=== PATIENT | male | born 1945 | race Caucasian/White ===

== ENCOUNTER → 2016-10-20 | Outpatient (CLI) | payer BC ==
[~2016-10-20] MED LIST: ASPI81TA28 PO; CEPH500C PO; METO50TA7 PO; SILD100T PO
== END | disposition home or self-care (01) ==
LOC: C.RDSM 13:03
PROVIDERS: ATTEND Family Medicine
DX: M20.42 Other hammer toe(s) (acquired), left foot (principal)

== ENCOUNTER 2017-01-13 14:36 | Emergency (ER) | payer BC ==
[~2017-01-13] VITALS: Ht 180.3 cm; Wt 69.4 kg
[2017-01-13 14:45] VITALS: TEMP 36.4; Ht 180.3 cm; Wt 69.4 kg
[2017-01-13] MEDS ORDERED: BUPIVACAINE 0.5 % 5 MG/1 ML MPF 30ML VIAL INFIL ONE (15:15)
[2017-01-13] MEDS ORDERED: LIDOCAINE/EPINEPHRINE 1% 20 ML VIAL INFIL ONE (15:15)
[2017-01-13] MEDS ORDERED: METO50TA7 PO (15:31)
[2017-01-13] MEDS ORDERED: ASPI81TA28 PO (15:33)
[2017-01-13] MEDS ORDERED: SILD100T PO (15:33)
--- NOTE | 2017-01-13 15:51 | DIAGNOSTIC IMAGING REPORT ---
RIGHT FEMUR 2 VIEWS ROUTINE CLINICAL HISTORY: Right lateral leg pain COMPARISON: None. DISCUSSION: No fractures are visualized. There is air within the proximal lateral soft tissues, consistent with a soft tissue injury. IMPRESSION: Soft tissue injury. No radiopaque foreign bodies identified. No evidence of fracture. Electronically signed by: Saravanan Lan M.D. 01/13/2017 3:50 PM Dictated Date/Time: 01/13/2017 3:49 PM
[2017-01-13] MEDS ORDERED: CEPH500C PO (17:28)
[2017-01-13 17:43] VITALS: BP 143/90; PULSE 62; O2SAT 97
--- NOTE | 2017-01-13 18:26 | EMERGENCY ROOM VISIT NOTE ---
ED Visit Note First contact with patient: 14:56 This Patient was discussed with the physician engineer third assistant, Gali Xiao PA-C. The pertinent historical and physical exam findings were confirmed. I agree with the studies ordered and with the interpretations of these studies. I agree with the disposition and care plan.
--- NOTE | 2017-01-13 18:28 | EMERGENCY ROOM VISIT NOTE ---
ED Visit Note First contact with patient: 14:56 CHIEF COMPLAINT: Right lateral thigh laceration HISTORY OF PRESENT ILLNESS: This 72-year-old male patient presents to the emergency department approximately 1 hour after cutting the right lateral thigh. The patient states he was walking down the steps, when he tripped, and fell, landing on his right leg. The patient states he hit a corner of a piece of plywood, and experienced a large laceration of the right lateral thigh. The patient has been able to walk, and has not had any decreased range of motion. The patient did drive himself to the emergency department, and has not taken anything for pain. The bleeding has not stopped. Denies weakness or numbness of the right lower extremity. The patient rates the pain as minimal and 1/10. The patient denies any other injuries. The patient's Tetanus shot is up to date. REVIEW OF SYSTEMS: A 6 system review of systems was completed with positives and pertinent negatives listed in the HPI. ALLERGIES: None MEDICATIONS: Metoprolol PMH: Mild heart arrhythmia SOCIAL HISTORY: The patient lives locally with family. He denies drug, alcohol , tobacco use. PHYSICAL EXAM: Vital Signs: Reviewed Nurse's notes, vital signs stable. GENERAL : This is a 72-year-old male, in no acute distress, well-developed, well- nourished. SKIN: There is a 6 cm long laceration on the lateral aspect of the right thigh. The edges gape apart with and without traction. There is no foreign material in the wound and it looks clean. There is minimal bleeding. The laceration does extend to the muscle, however is not through the fascia. No other deep structures such as tendons, bones, or significant blood vessels are seen in the base of the wound. Normal strength and movement of the right lower extremity. The patient is able to bear weight on the leg. Capillary refill less than 2 seconds. Normal sensation to light and sharp touch. RADIOLOGY: X-Ray Right Femur: DISCUSSION: No fractures are visualized. There is air within the proximal lateral soft tissues, consistent with a soft tissue injury. IMPRESSION: Soft tissue injury. No radiopaque foreign bodies identified. No evidence of fracture. EMERGENCY DEPARTMENT COURSE: I examined the patient. Verbal consent was obtained to perform the procedure. Using sterile technique the wound was cleansed with Betadine. The area was sterilely draped. 26 ml of 1% buffered lidocaine with epinephrine and 0.5% bupivacaine was used to anesthetize the laceration on the right lateral thigh. Once the patient was anesthetized, the wound was copiously irrigated under pressure with 1 L sterile saline. The wound was explored and was as described above. The laceration was repaired using 5 subcuticular 4-0 Vicryl sutures and 13 simple interrupted 4-0 nylon sutures with the wound edges being well approximated. The patient tolerated the procedure well. Hemostasis was achieved. The area was cleaned with sterile saline and dressed with bacitracin ointment and bandage. The patient was seen and evaluated by Dr. Akhtar, who is in agreement with the assessment and plan. The patient was discharged home in good condition. DIFFERENTIAL DIAGNOSIS: Femur fracture, laceration through muscle, open fracture , and others. DIAGNOSIS: Right lateral thigh laceration DISCHARGE INSTRUCTIONS & TREATMENT: You have received 13 sutures on your right thigh. These sutures are NOT dissolvable and WILL need to be removed by a health care provider in 12-14 days. You can return to the Emergency Department or contact your Primary Care Provider to have the sutures removed. You also received 5 dissolvable sutures below the skin. You were prescribed Keflex to be taken 4 times daily. This is an antibiotic. All antibiotics have the potential to cause diarrhea. Stop this medication and contact a medical provider if you were to develop any significant adverse side effects including: wheezing, shortness of breath, passing out, vomiting, or a diffuse rash. Always take antibiotics as directed and COMPLETE the ENTIRE course regardless of the improvement of your symptoms. Proper wound care is essential for adequate wound healing and infection prevention. You can shower and clean the wound with soap and water. Do not scour over the wound, pat dry with a towel. Do not submerse the wound (i.e. bathe or dish wash) until the sutures have been removed. You can use an antibiotic ointment with a dressing over the wound for the next 3-4 days. After this time you may leave the wound dry and open to the air. If crust develops over the wound you can use a Q-tip to apply a 1:1 peroxide:water solution to clean the wound. Look for signs of infection of the wound including: increased pain, swelling, foul discharge, streaking, or increased temperature. If any of these are noticed you should return to the Emergency Department for further assessment and treatment. As with any laceration you may have received nerve damage to the surrounding tissues. This damage may or may not be permanent. You should keep the area covered with sunscreen for the first 6 months to 1 year when at risk for exposure to help minimize scarring. You can also use scar reducing creams or Vitamin E oil to help minimize scarring. For pain control, you can use the following kdro-ztd-uagtqjs medicines (if >12 yo): - Regular strength (325mg/tab) Tylenol (acetaminophen) 2 tabs every 4-6 hours as needed. Do not exceed 12 tablets in a 24 hour period. Avoid taking more than 4 grams (4000 mg) of Tylenol per day. This includes any other sources of acetaminophen you may take on a regular basis. - Regular strength (200 mg/tab) Advil (ibuprofen) 1-2 tabs every 4-6 hours as needed. Do not exceed a dose of 3200 mg per day. Please avoid excessive physical activity until the sutures have been removed. Contact orthopedic surgery for further evaluation if you experience any significant loss of mobility or difficulty with ambulation. Return to the emergency department if your symptoms worsen despite treatment course outlined above. Current/Historical Medications Scheduled Aspirin (Aspirin Ec), 81 MG PO DAILY Cephalexin Monohydrate (Keflex), 500 MG PO QID Metoprolol Succ (Toprol Xl) (Toprol-Xl), 150 MG PO DAILY Sildenafil Citrate (Viagra), 100 MG PO PRN Allergies Coded Allergies: No Known Allergies (Unverified Allergy, Mild, 05/27/08) Vital Signs Date Time Temp Pulse Resp B/P (MAP) Pulse Ox O2 Delivery O2 Flow Rate FiO2 01/13/17 17:43 62 18 143/90 97 01/13/17 14:45 36.4 67 18 137/83 94 Room Air Departure Information Impression Primary Impression: Laceration of lower extremity Dispostion Home / Self-Care Condition GOOD Prescriptions Cephalexin Monohydrate (Keflex) 500 Mg Cap 500 MG PO QID for 7 Days, #28 CAP Prov: Gali Xiao PA-C 01/13/17 Referrals Maryann Stovall, C.R.N.P. (PCP) Jacinto Palomino M.D. Patient Instructions ED Laceration Ext Sutr Stap Tape, [facility] Additional Instructions You have received 13 sutures on your right thigh. These sutures are NOT dissolvable and WILL need to be removed by a health care provider in 12-14 days. You can return to the Emergency Department or contact your Primary Care Provider to have the sutures removed. You also received 5 dissolvable sutures below the skin. You were prescribed Keflex to be taken 4 times daily. This is an antibiotic. All antibiotics have the potential to cause diarrhea. Stop this medication and contact a medical provider if you were to develop any significant adverse side effects including: wheezing, shortness of breath, passing out, vomiting, or a diffuse rash. Always take antibiotics as directed and COMPLETE the ENTIRE course regardless of the improvement of your symptoms. Proper wound care is essential for adequate wound healing and infection prevention. You can shower and clean the wound with soap and water. Do not scour over the wound, pat dry with a towel. Do not submerse the wound (i.e. bathe or dish wash) until the sutures have been removed. You can use an antibiotic ointment with a dressing over the wound for the next 3-4 days. After this time you may leave the wound dry and open to the air. If crust develops over the wound you can use a Q-tip to apply a 1:1 peroxide:water solution to clean the wound. Look for signs of infection of the wound including: increased pain, swelling, foul discharge, streaking, or increased temperature. If any of these are noticed you should return to the Emergency Department for further assessment and treatment. As with any laceration you may have received nerve damage to the surrounding tissues. This damage may or may not be permanent. You should keep the area covered with sunscreen for the first 6 months to 1 year when at risk for exposure to help minimize scarring. You can also use scar reducing creams or Vitamin E oil to help minimize scarring. For pain control, you can use the following sbgq-hsz-bxmajej medicines (if >12 yo): - Regular strength (325mg/tab) Tylenol (acetaminophen) 2 tabs every 4-6 hours as needed. Do not exceed 12 tablets in a 24 hour period. Avoid taking more than 4 grams (4000 mg) of Tylenol per day. This includes any other sources of acetaminophen you may take on a regular basis. - Regular strength (200 mg/tab) Advil (ibuprofen) 1-2 tabs every 4-6 hours as needed. Do not exceed a dose of 3200 mg per day. Please avoid excessive physical activity until the sutures have been removed. Contact orthopedic surgery for further evaluation if you experience any significant loss of mobility or difficulty with ambulation. Return to the emergency department if your symptoms worsen despite treatment course outlined above. Problem Qualifiers Primary Impression: Laceration of lower extremity Encounter type: initial encounter Laterality: right Qualified Codes: S81.811A - Laceration without foreign body, right lower leg, initial encounter
== END 2017-01-13 17:43 | disposition home or self-care (01) ==
LOC: C.EDB 14:37 → C.EDD 17:43
DX: S71.111A Laceration without foreign body, right thigh, initial encounter (principal); Z79.82 Long term (current) use of aspirin; Z79.899 Other long term (current) drug therapy; W10.9XXA Fall (on) (from) unspecified stairs and steps, initial encounter

== ENCOUNTER 2017-01-21 08:07 | Emergency (ER) | payer BC ==
[~2017-01-21] VITALS: Ht 180.3 cm; Wt 72.4 kg
[2017-01-21 08:13] VITALS: TEMP 36.5; Ht 180.3 cm; Wt 72.4 kg
--- NOTE | 2017-01-21 08:52 | EMERGENCY ROOM VISIT NOTE ---
ED Visit Note First contact with patient: 08:22 CHIEF COMPLAINT: Suture removal HPI: This patient returns to the ED today for removal of sutures that were placed 8 days ago. There has been no swelling, redness, or significant drainage from the wound. The patient feels like the laceration is healing well. The patient was supposed to return in 12-14 days, but came early because he is going out of town tomorrow. The patient does report a bulge in the lateral aspect of his leg, distal to the laceration. He states this occurred approximately 4-5 days after the initial sutures were placed. The patient denies any difficulty with ambulation or movement of the extremity. He states it is a little uncomfortable when getting out of his vehicle, but otherwise has not been a problem. REVIEW OF SYSTEMS: A complete 6 point review of systems was reviewed with the patient with pertinent positives and negatives as per history of present illness. All else were negative. PMH: Unchanged from previous visit MEDS: Aspirin, metoprolol, Viagra SOCIAL HISTORY: Patient lives locally. He denies drug, alcohol, tobacco use. PHYSICAL EXAM: Vital Signs: Reviewed Nurse's notes. Vital signs stable. There is a sutured wound on the lateral right thigh with no signs of infection. There is no erythema, swelling, or tenderness. There is no separation of the wound edges on stressing of the wound. There is a small bulge on palpation surrounding the wound. This is not indurated, erythematous, or otherwise indicative of an infection. This does feel like soft tissue swelling. EMERGENCY DEPARTMENT COURSE: The sutures were removed without any difficulty and there was no separation of the wound edges. Because the sutures should have been left in a few days, Steri-Strips were placed over the wound. The patient was advised to follow-up with orthopedics. He was discharged home in good condition. DIAGNOSIS: Healing laceration and suture removal DISCHARGE INSTRUCTIONS AND TREATMENT: Proper wound care is essential for adequate wound healing and infection prevention. You can shower and clean the wound with soap and water. Do not scour over the wound, pat dry with a towel. Do not submerse the wound (i.e. bathe or dish wash) until the wound has fully healed. You can use an antibiotic ointment with a dressing over the wound for the next 3-4 days. After this time you may leave the wound dry and open to the air. The steri-strips will fall off on their own. You may apply antibiotic ointment after they fall off. For pain control, you can use the following gkwj-wex-xnjffab medicines (if >12 yo): - Regular strength (325mg/tab) Tylenol (acetaminophen) 2 tabs every 4-6 hours as needed. Do not exceed 9 tablets in a 24 hour period. Avoid taking more than 3 grams (3000 mg) of Tylenol per day. This includes any other sources of acetaminophen you may take on a regular basis. - Regular strength (200 mg/tab) Advil (ibuprofen) 1-2 tabs every 4-6 hours as needed. Do not exceed a dose of 2400 mg per day. Please follow-up with Dr. Palomino regarding the wound and after-care. Return to the emergency department for increasing redness, swelling, fever, chills, nausea, vomiting, pus-like drainage, or other concerning symptoms. Current/Historical Medications Scheduled Aspirin (Aspirin Ec), 81 MG PO DAILY Metoprolol Succ (Toprol Xl) (Toprol-Xl), 150 MG PO DAILY Sildenafil Citrate (Viagra), 100 MG PO PRN Allergies Coded Allergies: No Known Allergies (Unverified , 01/21/17) Vital Signs Date Time Temp Pulse Resp B/P (MAP) Pulse Ox O2 Delivery O2 Flow Rate FiO2 01/21/17 09:01 59 18 96 01/21/17 08:13 36.5 62 18 153/94 97 Room Air Departure Information Impression Primary Impression: Encounter for removal of sutures Dispostion Home / Self-Care Condition GOOD Referrals Maryann Stovall, C.R.N.P. (PCP) Jacinto Palomino M.D. Patient Instructions [facility] Additional Instructions Proper wound care is essential for adequate wound healing and infection prevention. You can shower and clean the wound with soap and water. Do not scour over the wound, pat dry with a towel. Do not submerse the wound (i.e. bathe or dish wash) until the wound has fully healed. You can use an antibiotic ointment with a dressing over the wound for the next 3-4 days. After this time you may leave the wound dry and open to the air. The steri-strips will fall off on their own. You may apply antibiotic ointment after they fall off. For pain control, you can use the following loue-jry-osorcmy medicines (if >12 yo): - Regular strength (325mg/tab) Tylenol (acetaminophen) 2 tabs every 4-6 hours as needed. Do not exceed 9 tablets in a 24 hour period. Avoid taking more than 3 grams (3000 mg) of Tylenol per day. This includes any other sources of acetaminophen you may take on a regular basis. - Regular strength (200 mg/tab) Advil (ibuprofen) 1-2 tabs every 4-6 hours as needed. Do not exceed a dose of 2400 mg per day. Please follow-up with Dr. Palomino regarding the wound and after-care. Return to the emergency department for increasing redness, swelling, fever, chills, nausea, vomiting, pus-like drainage, or other concerning symptoms.
[2017-01-21 09:01] VITALS: BP 134/77; PULSE 59; O2SAT 96
== END 2017-01-21 09:01 | disposition home or self-care (01) ==
LOC: C.EDB 08:09
DX: S71.111D Laceration without foreign body, right thigh, subsequent encounter (principal); X58.XXXD Exposure to other specified factors, subsequent encounter